=== PATIENT | female | born 1965 | race Caucasian/White ===

== ENCOUNTER 2021-07-21 19:53 | Emergency (ER) | payer SELFPAY ==
[~2021-07-21] VITALS: Ht 149.9 cm; Wt 69.9 kg
[2021-07-21] MEDS ORDERED: ONDANSETRON ODT4 MG PO (22:28)
[2021-07-21] MEDS ORDERED: CEFDINIR300 MG PO (22:28)
== END 2021-07-21 23:23 | disposition home or self-care (01) ==
LOC: FSED 20:00
DX: R42 Dizziness and giddiness (principal); N39.0 Urinary tract infection, site not specified; F17.210 Nicotine dependence, cigarettes, uncomplicated
CPT/HCPCS: 70450; 71045; 80053; 81003; 82553; 84484; 85025; 93005; 99284